=== PATIENT | male | born 1995 | race African-American/Black ===

== ENCOUNTER 2020-02-04 09:59 | Emergency (ER) | payer MEDICAID ==
[~2020-02-04] VITALS: Ht 177.8 cm; Wt 127.0 kg
[2020-02-04 10:44] LABS: BASOPHILS % 0.5 % (0.0-2.0); EOSINOPHILS % 0.3 % (0.0-5.0); HEMATOCRIT. 42.7 % (42.0-52.0); HEMOGLOBIN. 13.9 g/dL (14.0-18.0); LYMPHOCYTES % 17.4 % (20.0-50.0); MEAN CORPUSCULAR HEMOGLOBIN 27.2 pg (28.0-32.0); MEAN CORPUSCULAR VOLUME 83.5 fL (80.0-94.0); MEAN PLATELET VOLUME 7.7 fl (7.4-10.4); MONOCYTES % 7.9 % (2.0-8.0); NEUTROPHILS % 73.9 % (40.0-76.0); PLATELET 257 x1000/uL (130-400); RED BLOOD CELL COUNT 5.11 mill/uL (4.7-6.1); RED CELL DISTRIBUTION WIDTH 14.3 % (11.6-14.6)
[2020-02-04 10:49] LABS: CLARITY URINE CLEAR (CLEAR); COLOR URINE DARK YELLOW (YELLOW); KETONES URINE 3+ (NEGATIVE); LEUKOCYTE ESTERASE URINE NEGATIVE (NEGATIVE); NITRITE URINE NEGATIVE (NEGATIVE); OCCULT BLOOD URINE NEGATIVE (NEGATIVE); PROTEIN URINE 1+ (NEGATIVE)
[2020-02-04 10:52] LABS: CHLORIDE 106 mEq/L (98-107)
[2020-02-04 10:59] LABS: ETHANOL BLOOD < 10 mg/dL
[2020-02-04 11:02] LABS: *AMPHETAMINES SCREEN URINE NEGATIVE (NEGATIVE); *BARBITURATES SCREEN URINE NEGATIVE (NEGATIVE); *BENZODIAZEPINES SCREEN URINE NEGATIVE (NEGATIVE); *COCAINE SCREEN URINE NEGATIVE (NEGATIVE)
[2020-02-04 11:03] LABS: CANNABINOID URINE SCREEN PRESUMTIVE POSITIVE (NEGATIVE); METHADONE URINE SCREEN NEGATIVE (NEGATIVE); OPIATES URINE SCREEN NEGATIVE (NEGATIVE); PHENCYCLIDINE URINE SCREEN NEGATIVE (NEGATIVE)
[2020-02-05] MEDS ORDERED: LORAZEPAM 1MG TABLET PO ONE (11:30)
[2020-02-05] MEDS ORDERED: HALOPERIDOL 5MG TABLET PO ONE (19:45)
[2020-02-05] MEDS ORDERED: BENZTROPINE MESYLATE 1MG TABLET PO ONE (19:45)
[2020-02-05] MEDS ORDERED: OLANZAPINE 10 MG/VIAL IM ONE (20:45)
[2020-02-06] MEDS ORDERED: LORAZEPAM 1MG TABLET PO ONE (07:00)
[2020-02-07] MEDS ORDERED: OLANZAPINE 10 MG/VIAL IM ONE (01:00)
[2020-02-07] MEDS ORDERED: ZIPRASIDONE MESYLATE 20MG/VIAL IM ONE ×3 (02:45→23:45)
[2020-02-07] MEDS ORDERED: LORAZEPAM 1MG TABLET PO ONE (13:00)
[2020-02-07] MEDS ORDERED: LORAZEPAM 1MG TABLET PO NR (14:00)
[2020-02-07] MEDS ORDERED: AMLODIPINE 2.5MG TABLET PO ONE (22:30)
[2020-02-08 15:10] VITALS: BP 167/95
== END 2020-02-08 15:37 ==
LOC: ER 09:59
DX: R46.2 Strange and inexplicable behavior (principal); R74.0 Nonspecific elevation of levels of transaminase and lactic acid dehydrogenase [LDH]; E77.8 Other disorders of glycoprotein metabolism; Z20.828 Contact with and (suspected) exposure to other viral communicable diseases
CPT/HCPCS: 36415; 80053; 80305; 80307; 80320; 80329; 81003; 82140; 83605; 84443; 85025; 87635; 93005; 96372; 99285; J1630; J3486; J3490; G0480

== ENCOUNTER 2021-02-16 13:34 | Emergency (ER) | payer MEDICAID ==
[~2021-02-16] VITALS: Ht 182.9 cm; Wt 160.0 kg
[2021-02-16] MEDS ORDERED: LORAZEPAM 2MG/ML CPJ IM SCH (18:15)
[2021-02-16] MEDS ORDERED: HALOPERIDOL LACTATE 5MG/ML VIAL IM SCH (18:15)
[2021-02-16 19:40] LABS: BASOPHILS % 0.5 % (0.0-2.0); EOSINOPHILS % 0.1 % (0.0-5.0); HEMATOCRIT. 42.3 % (42.0-52.0); HEMOGLOBIN. 14.1 g/dL (14.0-18.0); LYMPHOCYTES % 20.2 % (20.0-50.0); MEAN CORPUSCULAR HEMOGLOBIN 27.2 pg (28.0-32.0); MEAN CORPUSCULAR VOLUME 81.9 fL (80.0-94.0); MEAN PLATELET VOLUME 7.7 fl (7.4-10.4); MONOCYTES % 10.5 % (2.0-8.0); NEUTROPHILS % 68.7 % (40.0-76.0); PLATELET 288 x1000/uL (130-400); RED BLOOD CELL COUNT 5.16 mill/uL (4.7-6.1); RED CELL DISTRIBUTION WIDTH 13.9 % (11.6-14.6)
[2021-02-16 19:46] LABS: CHLORIDE 109 mEq/L (98-107)
[2021-02-16 19:53] LABS: ETHANOL BLOOD < 10 mg/dL
[2021-02-16 20:00] VITALS: BP 173/86
[2021-02-16 20:12] LABS: CLARITY URINE CLEAR (CLEAR); COLOR URINE DK YELLOW (YELLOW); KETONES URINE 2+ (NEGATIVE); LEUKOCYTE ESTERASE URINE NEGATIVE (NEGATIVE); NITRITE URINE NEGATIVE (NEGATIVE); OCCULT BLOOD URINE NEGATIVE (NEGATIVE); PROTEIN URINE 2+ (NEGATIVE); SPECIFIC GRAVITY URINE 1.028 (1.005-1.030)
[2021-02-16 20:25] LABS: *AMPHETAMINES SCREEN URINE NEGATIVE (NEGATIVE); *BARBITURATES SCREEN URINE NEGATIVE (NEGATIVE); *BENZODIAZEPINES SCREEN URINE NEGATIVE (NEGATIVE)
[2021-02-16 20:26] LABS: *COCAINE SCREEN URINE NEGATIVE (NEGATIVE); CANNABINOID URINE SCREEN PRESUMTIVE POSITIVE (NEGATIVE); METHADONE URINE SCREEN NEGATIVE (NEGATIVE); OPIATES URINE SCREEN NEGATIVE (NEGATIVE); PHENCYCLIDINE URINE SCREEN NEGATIVE (NEGATIVE)
[2021-02-16 20:43] LABS: CREATINE KINASE 1576 IU/L (39-308)
== END 2021-02-16 22:34 | disposition home or self-care (01) ==
LOC: ER 13:43
DX: F29 Unspecified psychosis not due to a substance or known physiological condition (principal)
CPT/HCPCS: 36415; 80053; 80305; 80307; 80320; 80329; 81003; 82550; 85025; 93005; 96372; 99284; J1630; J2060; Z7610; G0480